=== PATIENT | male | born 1955 | race Caucasian/White ===

== ENCOUNTER 2024-03-21 17:43 | Emergency (ER) | payer MEDICARE, OTHER ==
[2024-03-21 18:04] VITALS: BP 147/85; PULSE 76; RESP 18; TEMP 98.3; BMI 27.2
[2024-03-21] MEDS ORDERED: DIPHTH,PERTUSS(ACELL),TET 0.5 ML DISP.SYRIN IM ONE (19:22)
[2024-03-21] MEDS: DIPHTH,PERTUSS(ACELL),TET 0.5 ML DISP.SYRIN IM ONE (19:30)
== END 2024-03-21 20:08 | disposition home or self-care (01) ==
LOC: JERFT 17:43
PROC: 0XQLXZZ Repair Right Thumb, External Approach (ICD-10-PCS; principal; 2024-03-21)
PROC: 3E0234Z Introduction of Serum, Toxoid and Vaccine into Muscle, Percutaneous Approach (ICD-10-PCS; 2024-03-21)
DX: S61.011A Laceration without foreign body of right thumb without damage to nail, initial encounter (principal); W29.0XXA Contact with powered kitchen appliance, initial encounter; Z23 Encounter for immunization
CPT/HCPCS: 12001-25; 90471; 90715; 99284-25